=== PATIENT | male | born 1965 | race African-American/Black ===

== ENCOUNTER 2016-10-14 00:22 | Emergency (ER) | payer OTHER ==
[~2016-10-14] VITALS: Ht 170.2 cm; Wt 79.4 kg
[~2016-10-14 00:22] MED LIST: ATOR10TA PO; CALC200T3 PO; LURA60TA PO
[2016-10-14 01:10] VITALS: BP 135/89
[2016-10-14] MEDS ORDERED: NEOM1PAC TP (01:56)
--- NOTE | 2016-10-14 01:56 | PHYS DOC ---
Past Medical History Past Medical History: No Pertinent History Additional Past Medical Histor: HIGH CHOLESTEROL Past Surgical History: Cholecystectomy Additional Past Surgical Histo: gall stones Alcohol Use: None Drug Use: Heroin Social History Narrative: PATIENT REPORTS USING 5CC HEROIN THIS EVENING Adult General Chief Complaint Chief Complaint: RASH HPI HPI 51-year-old male presenting to the emergency department with a rash on the anterior portion of the chest. He reports scratched him multiple times after heroin use. Onset today location chest duration constant associated with itching. Review of Systems Review of Systems ROS negative for chest pain shortness of breath abdominal pain nausea vomiting fevers or chills. All other review systems was reviewed unless noted in the history of present illness. Allergies Allergies Allergies Coded Allergies Type Severity Reaction Last Updated Verified Penicillins Allergy Intermediate rash 02/04/14 Yes Physical Exam Physical Exam Constitutional: Well developed, well nourished, no acute distress, non-toxic appearance. [] HENT: Normocephalic, atraumatic, bilateral external ears normal, oropharynx moist, no oral exudates, nose normal. [] Eyes: PERRLA, EOMI, conjunctiva normal, no discharge. [] Neck: Normal range of motion, no tenderness, supple, no stridor. [] The patient's anterior chest wall has multiple scab lesions on the skin suggestive of picking. No evidence cellulitis in the deeper skin structure. Cardiovascular:Heart rate regular rhythm, no murmur [] Lungs & Thorax: Bilateral breath sounds clear to auscultation [] Abdomen: Bowel sounds normal, soft, no tenderness, no masses, no pulsatile masses. [] Skin: Warm, dry, no erythema, no rash. [] Back: No tenderness, no CVA tenderness. [] Extremities: No tenderness, no cyanosis, no clubbing, ROM intact, no edema. [] Neurologic: Alert and oriented X 3, normal motor function, normal sensory function, no focal deficits noted. [] Psychologic: Affect normal, judgement normal, mood normal. [] Current Patient Data Vital Signs Vital Signs Date Time Temp Pulse Resp B/P Pulse Ox O2 Delivery O2 Flow Rate FiO2 10/14/16 01:10 97.9 76 16 135/89 95 Room Air 97.9 EKG EKG [] Radiology/Procedures Radiology/Procedures [] Course & Med Decision Making Course & Med Decision Making Pertinent Labs and Imaging studies reviewed. (See chart for details) [][id number] male presenting to the emergency Department today with scabbing lesions from picking after heroin use. I recommended the use of antibiotic ointment topically in the discontinuation of heroin. He was then discharged home in stable condition. Dragon Disclaimer Dragon Disclaimer This electronic medical record was generated, in whole or in part, using a voice recognition dictation system. Departure Departure Impression: Primary Impression: Rash Disposition: HOME, SELF-CARE Condition: STABLE Referrals: NO PCP (PCP) TOAMS JACKSON MD Patient Instructions: Rash Additional Instructions: Thank you for allowing us to participate in your care today. Followup with your primary care physician in 3 days if your symptoms do not improve. If you do not have a primary care provider you can ask for a list of our primary care providers. Return to the emergency department you have any new or concerning findings. This should be evaluated by the primary care physician and any necessary consulting services for continued management within a few days after discharge. Return to emergency room if you have any new or concerning symptoms including but not limited to fever, chills, nausea, vomiting, intractable pain, any new rashes, chest pain, shortness of air, uncontrolled bleeding, difficulty breathing, and/or vision loss. Scripts Neomy Sulf/Bacitra/Polymyxin B (Triple Antibiotic Ointment)1 Each Packet1 Each TP DAILY 5 Days Prov:MANE TEJADA MD 10/14/16 MANE TEJADA MD Oct 14, 2016 01:56
== END 2016-10-14 02:05 | disposition home or self-care (01) ==
LOC: ER 00:22
DX: R21 Rash and other nonspecific skin eruption (principal); F11.90 Opioid use, unspecified, uncomplicated; E78.00 Pure hypercholesterolemia, unspecified; Z88.0 Allergy status to penicillin
CPT/HCPCS: 99282

== ENCOUNTER → 2018-07-01 | Outpatient (CLI) | payer OTHER ==
[~2018-07-01] MED LIST changes: +NEOM1PAC TP
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
== END | disposition home or self-care (01) ==
LOC: RAD 09:51
PROVIDERS: ATTEND Internal Medicine Infectious Disease
DX: M54.5 Low back pain (principal); E78.5 Hyperlipidemia, unspecified; E78.00 Pure hypercholesterolemia, unspecified; Z88.0 Allergy status to penicillin; Z87.19 Personal history of other diseases of the digestive system
CPT/HCPCS: 72100